=== PATIENT | female | born 1995 | race African-American/Black ===

== ENCOUNTER 2017-02-06 10:40 | Outpatient (CLI) | payer MEDICAID, OTHER | END 2017-02-06 10:41 | disposition home or self-care (01) | LOC: LAB.WCP 10:40 | PROVIDERS: ATTEND Family Medicine | DX: R30.0 Dysuria (principal) | CPT/HCPCS: 87086 ==

== ENCOUNTER 2017-04-27 14:00 | Outpatient (CLI) | payer OTHER | END 2017-04-27 14:01 | disposition home or self-care (01) | LOC: LAB.R 14:00 | PROVIDERS: ATTEND Family Medicine | DX: N39.0 Urinary tract infection, site not specified (principal) | CPT/HCPCS: 87077; 87086 ==

== ENCOUNTER 2018-07-05 16:09 | Outpatient (CLI) | payer OTHER ==
--- NOTE | 2018-07-05 17:09 | CT Report ---
Reason: FLANK PAIN,RIGHT Procedure Date: 07/05/2018 Accession Number: [id number] / [id number] Procedure: CT - Abdomen/Pelvis WO CPT Code: FULL RESULT: EXAM: CT ABDOMEN AND PELVIS (CT KUB) EXAM DATE: 07/05/2018 04:31 PM. CLINICAL HISTORY: Right flank pain. Possible renal colic. COMPARISONS: None. TECHNIQUE: Routine axial helical CT imaging was performed through the abdomen and pelvis without IV contrast. Reconstructions: Coronal and sagittal. In accordance with CT protocol optimization, one or more of the following dose reduction techniques were utilized for this exam: automated exposure control, adjustment of mA and/or KV based on patient size, or use of iterative reconstructive technique. FINDINGS: Lung Bases: Clear. Right Kidney/Ureter: No hydronephrosis, hydroureter, or stones. No focal renal abnormality identified. No perinephric fat stranding or fluid. Left Kidney/Ureter: No hydronephrosis, hydroureter, or stones. No focal renal abnormalities identified. No perinephric fluid or fat stranding. Other Solid Organs: Unremarkable survey of the unenhanced liver, spleen, pancreas, and adrenal glands. Gallbladder/Bile Ducts: Contracted gallbladder. No calcified gallstones or obvious ductal dilatation. Peritoneal Cavity: No intestinal dilatation or obvious phlegmon. Appendix is likely normal. No free fluid, free air, or mesenteric adenopathy. Tiny fat-containing umbilical hernia. Retroperitoneum: No mass or adenopathy. Pelvic Organs: Unremarkable bladder. IUD could be obliquely oriented in the uterus, detail limited. No adnexal mass, abnormal fluid collection, or adenopathy. Vasculature: Normal caliber abdominal aorta. Bones: No significant findings identified. IMPRESSION: 1. No hydronephrosis, urolithiasis, or focal renal abnormality identified on noncontrast exam. 2. Contracted gallbladder limits detail. No obvious calcified gallstone. 3. No focal inflammatory or other obstructive process identified. Normal appendix. [facility]
== END 2018-07-05 16:10 | disposition home or self-care (01) ==
LOC: DI 16:09
PROVIDERS: ATTEND Family Medicine
DX: R10.9 Unspecified abdominal pain (principal)
CPT/HCPCS: 74176

== ENCOUNTER 2020-04-22 15:13 | Outpatient (CLI) | payer OTHER ==
--- NOTE | 2020-04-22 17:34 | XRAY Report ---
PROCEDURE: Ankle 3 View LT INDICATIONS: SPRAIN OF UNSPECIFIED LIGAMENT OF L ANKLE TECHNIQUE: 3 views of the ankle were acquired. COMPARISON: None FINDINGS: Bones: No fractures or dislocations. Ankle mortise is normally aligned. No suspicious bony lesions . Soft tissues: No tibiotalar joint effusion. Achilles tendon appears normal. IMPRESSION: Left ankle without acute osseous abnormalities or significant degenerative change. Reviewed by: Michael Garcia MD on 04/22/2020 5:32 PM PST Approved by: Michael Garcia MD on 04/22/2020 5:32 PM PST Station ID: [id number]
== END 2020-04-22 23:59 | disposition home or self-care (01) ==
LOC: DI.N 15:13
PROVIDERS: ATTEND Nurse Practitioner
DX: S93.402A Sprain of unspecified ligament of left ankle, initial encounter (principal)

== ENCOUNTER 2022-08-08 08:00 | Outpatient (CLI) | payer OTHER | END 2022-08-08 08:01 | disposition home or self-care (01) | LOC: LAB.WC 08:00 | PROVIDERS: ATTEND Nurse Practitioner | DX: R10.2 Pelvic and perineal pain (principal) | CPT/HCPCS: 87086 ==

== ENCOUNTER 2022-08-08 18:42 | Outpatient (CLI) | payer OTHER ==
--- NOTE | 2022-08-08 19:34 | Ultrasound Report ---
PROCEDURE: Pelvic w/Transvaginal INDICATIONS: PELVIC PAIN TECHNIQUE: Real-time scanning was performed of the pelvic organs, with image documentation. Additional endovagi nal scanning was necessary due to incomplete visualization of the adnexal and endometrial structures by transabdominal scanning. COMPARISON: None. FINDINGS: Uterus: Uterus is anteverted and normal in size at 6.5 x 3.4 x 3.5 cm. The myometrium is homogeneou s. The endometrium measures 9.7 mm in combined thickness. Ovaries: The right ovary measures 3.3 x 2.4 x 3.0 cm, with a calculated ovarian volume of 12.4 cc. The left ovary measures 3.1 x 1.9 x 3.1 cm, with a calculated ovarian volume of 9.8 cc. Small paraova katherin cyst simple on the left is noted measuring 1.2 cm. Complex focus of echogenicity is also noted i n the left measuring 1.8 cm. Prominent follicle versus simple cyst on the right is present measuring 1 cm. Other: No pathologic free abdominal or pelvic fluid. IMPRESSION: Bilateral ovarian/paraovarian cysts with a complex cyst noted on the left. Reviewed by: Kylee Nagy MD on 08/08/2022 7:32 PM PDT Approved by: Kylee Nagy MD on 08/08/2022 7:32 PM PDT Station ID: [id number]
== END 2022-08-08 18:43 | disposition home or self-care (01) ==
LOC: DI 18:42
PROVIDERS: ATTEND Nurse Practitioner
DX: N83.202 Unspecified ovarian cyst, left side (principal); N83.201 Unspecified ovarian cyst, right side
CPT/HCPCS: 87086

== ENCOUNTER 2022-08-09 16:06 | Outpatient (CLI) | payer OTHER ==
[2022-08-09 17:38] LABS: BILIRUBIN,URINE NEGATIVE (NEGATIVE); GLUCOSE, URINE (UA) NEGATIVE (NEGATIVE); KETONES,URINE (UA) NEGATIVE (NEGATIVE); LEUKOCYTE ESTERASE, URINE NEGATIVE (NEGATIVE); NITRITE,URINE NEGATIVE (NEGATIVE); OCCULT BLOOD,URINE NEGATIVE (NEGATIVE); PH,URINE 6.5 PH (5.0-7.5); PROTEIN,URINE NEGATIVE (NEGATIVE); UROBILINOGEN,URINE 0.2 (NORMAL) E.U./dL (NORMAL)
[2022-08-09 17:45] LABS: BASOPHILS % (AUTO) 0.5 %; EOSINOPHILS # (AUTO) 0.1 10^3/uL (0.0-0.7); HCT - HEMATOCRIT 42.6 % (37.0-47.0); HGB - HEMOGLOBIN 13.3 g/dL (12.0-16.0); LYMPHOCYTES # (AUTO) 2.6 10^3/uL (1.5-3.5); MEAN CORPUSCULAR HEMOGLOBIN 29.4 pg (27.0-31.0); MEAN CORPUSCULAR HGB CONC 31.2 g/dL (32.0-36.0); MEAN CORPUSCULAR VOLUME 94.2 fL (81.0-99.0); MEAN PLATELET VOLUME 9.7 fL (7.9-10.8); MONOCYTES # (AUTO) 0.4 10^3/uL (0.0-1.0); MONOCYTES % (AUTO) 6.6 %; NEUTROPHILS # (AUTO) 2.9 10^3/uL (1.5-6.6); NEUTROPHILS % (AUTO) 47.7 %; PLT - PLATELET COUNT 315 10^3/uL (130-450); RED BLOOD COUNT 4.52 10^6/uL (4.20-5.40); WHITE BLOOD COUNT 6.1 x10^3/uL (4.8-10.8)
[2022-08-09 17:54] LABS: BACTERIA,URINE Few /HPF (None Seen); CLARITY,URINE CLEAR (CLEAR); RBC,URINE None Seen /HPF (0-5); SQUAMOUS EPITHELIAL CELL,UR MANY Squamous (<= Few); WBC,URINE 0-3 /HPF (0-5)
[2022-08-09 18:09] LABS: ALBUMIN 4.3 g/dL (3.2-5.5); ALBUMIN/GLOBULIN RATIO 1.3 (1.0-2.2); BILIRUBIN,TOTAL 0.3 mg/dL (0.2-1.0); CALCIUM 9.1 mg/dL (8.5-10.3); CREATININE 0.8 mg/dL (0.4-1.0); TOTAL PROTEIN 7.6 g/dL (6.7-8.2)
== END 2022-08-09 16:07 | disposition home or self-care (01) ==
LOC: LAB.N 16:06
PROVIDERS: ATTEND Nurse Practitioner
DX: R10.2 Pelvic and perineal pain (principal)
CPT/HCPCS: 36415; 80053; 81001; 85025; 87086

== ENCOUNTER 2023-01-24 08:00 | Outpatient (CLI) | payer OTHER ==
[2023-01-24 15:55] LABS: BILIRUBIN,URINE NEGATIVE (NEGATIVE); GLUCOSE, URINE (UA) NEGATIVE (NEGATIVE); KETONES,URINE (UA) NEGATIVE (NEGATIVE); LEUKOCYTE ESTERASE, URINE NEGATIVE (NEGATIVE); NITRITE,URINE NEGATIVE (NEGATIVE); OCCULT BLOOD,URINE NEGATIVE (NEGATIVE); PROTEIN,URINE NEGATIVE (NEGATIVE); UROBILINOGEN,URINE 0.2 (NORMAL) E.U./dL (NORMAL)
[2023-01-24 15:58] LABS: CLARITY,URINE CLEAR (CLEAR)
[2023-01-24 16:15] LABS: BACTERIA,URINE Rare /HPF (None Seen); RBC,URINE 0-5 /HPF (0-5); SQUAMOUS EPITHELIAL CELL,UR FEW Squamous (<= Few)
== END 2023-01-24 23:59 | disposition home or self-care (01) ==
LOC: LAB.WC 08:00
PROVIDERS: ATTEND Nurse Practitioner
DX: R30.0 Dysuria (principal)
CPT/HCPCS: 81001; 87086

== ENCOUNTER 2023-02-28 08:00 | Outpatient (CLI) | payer OTHER ==
[2023-02-28 21:21] LABS: BASOPHILS % (AUTO) 0.4 %; EOSINOPHILS % (AUTO) 1.6 %; HCT - HEMATOCRIT 43.4 % (37.0-47.0); HGB - HEMOGLOBIN 13.8 g/dL (12.0-16.0); LYMPHOCYTES % (AUTO) 46.3 %; MEAN CORPUSCULAR HEMOGLOBIN 29.6 pg (27.0-31.0); MEAN CORPUSCULAR HGB CONC 31.8 g/dL (32.0-36.0); MEAN CORPUSCULAR VOLUME 93.1 fL (81.0-99.0); MEAN PLATELET VOLUME 9.9 fL (7.9-10.8); MONOCYTES % (AUTO) 8.1 %; NEUTROPHILS % (AUTO) 43.2 %; PLT - PLATELET COUNT 278 10^3/uL (130-450); RED BLOOD COUNT 4.66 10^6/uL (4.20-5.40); RED CELL DISTRIBUTION WIDTH 12.9 % (12.0-15.0); WHITE BLOOD COUNT 5.5 x10^3/uL (4.8-10.8)
[2023-02-28 21:26] LABS: ABNORMAL LYMPHS % (MANUAL) 0 %; ALBUMIN 4.4 g/dL (3.2-5.5); ALBUMIN/GLOBULIN RATIO 1.4 (1.0-2.2); BILIRUBIN,TOTAL 0.3 mg/dL (0.2-1.0); CALCIUM 9.2 mg/dL (8.5-10.3); CREATININE 0.8 mg/dL (0.6-1.3); TOTAL PROTEIN 7.5 g/dL (6.4-8.9)
[2023-02-28 22:12] LABS: BAND NEUTROPHILS % (MANUAL) 1 %; EOSINOPHILS # (MANUAL) 0.3 10^3/uL (0-0.7); LYMPHOCYTES # (MANUAL) 2.1 10^3/uL (1.5-3.5); LYMPHOCYTES % (MANUAL) 21 %; MONOCYTES # (MANUAL) 0.5 10^3/uL (0.0-1.0); NEUTROPHILS # (MANUAL) 2.6 10^3/uL (1.5-6.6); REACTIVE LYMPHS % (MANUAL) 18 %
[2023-02-28 22:14] LABS: DIFFERENTIAL COMMENT MANUAL DIFFERENTIAL; PLATELET ESTIMATE, MANUAL NORMAL (130-450,000) (NORMAL); PLATELET MORPHOLOGY NORMAL APPEARANCE (NORMAL); RBC MORPHOLOGY (MULTIPLE) NORMAL APPEARANCE (NORMAL)
== END 2023-02-28 23:59 | disposition home or self-care (01) ==
LOC: LAB.N 08:00
PROVIDERS: ATTEND Specialist
DX: R10.84 Generalized abdominal pain (principal); R19.7 Diarrhea, unspecified
CPT/HCPCS: 36415; 80053; 82150; 83690; 85025; 87177; 87209; 87493

== ENCOUNTER 2023-10-07 08:00 | Outpatient (CLI) | payer OTHER | END 2023-10-07 23:59 | disposition home or self-care (01) | LOC: LAB 08:00 | PROVIDERS: ATTEND Physician Assistant Medical | DX: J02.9 Acute pharyngitis, unspecified (principal) | CPT/HCPCS: 87070 ==